=== PATIENT | female | born 1965 | race Hispanic/Latino ===

== ENCOUNTER 2016-12-27 20:40 | Emergency (ER) | payer OTHER ==
[2016-12-27 21:02] VITALS: TEMP 98.3
--- NOTE | 2016-12-27 21:41 | ED PDOC ---
HPI: Chest Pain Time Seen by Provider: 12/27/16 21:04 Chief Complaint (Nursing): Palpitations History Per: Patient History/Exam Limitations: no limitations Onset/Duration Of Symptoms: Mins Current Symptoms Are (Timing): Gone Now Severity: None Modifying Factors: None Exacerbating Factors: None Alleviating Factors: None Additional Complaint(s): Hx of HTN, paroxysmal afib p/w palpitations x 15 min, states she was eating dinner and drinking wine and started feeling irregular heart beats and occasional skipped beats, states her heart was beating very fast and hard but denies CP. Denies SOB. States that symptoms abated on their own. Currently has no symptoms. Admits to not taking losartan x 5 weeks. Had holter monitoring in July that produced one capture of "irregular heart beat". Denies cough, fevers, chills. Admits to RLE pain yesterday that has since completely resolved. Past Medical History Reviewed: Historical Data, Nursing Documentation, Vital Signs Vital Signs: Last Vital Signs Temp 98.3 F 12/27/16 20:58 Pulse 94 H 12/27/16 20:58 Resp 17 12/27/16 20:58 BP 141/92 H 12/27/16 20:58 Pulse Ox 98 12/27/16 21:42 - Family History Family History: States: Unknown Family Hx - Allergies Allergies/Adverse Reactions: Allergies Allergy/AdvReac Type Severity Reaction Status Date / Time No Known Allergies Allergy Verified 12/27/16 21:02 SANJAY Risk Score for UA/NSTEMI - SANJAY Risk Score Age > 64: NO 3 or more CAD Risk Factors: NO Known CAD (Stenosis greater than 50%): NO Aspirin use in past 7 days: NO Severe Angina: NO EKG ST changes greater than 0.5mm: NO Positive Cardiac Marker: NO SANJAY Score: 0 Risk %: 5% Wells Criteria for PE - Wells Criteria for Pulmonary Embolism Clinical Signs and Symptoms of DVT: No P.E is #1 Diagnosis, or Equally Likely: No Heart Rate >100: No Immobilization at least 3 days;Surgery previous 4 weeks: No Previous, objectively diagnosed PE or DVT: No Hemoptysis: No Malignancy w/treatment within 6 months, or palliative: No Total Score: 0 Review of Systems ROS Statement: Except As Marked, All Systems Reviewed And Found Negative Cardiovascular: Positive for: Palpitations Musculoskeletal: Positive for: Leg Pain Physical Exam - Reviewed Nursing Documentation Reviewed: Yes Vital Signs Reviewed: Yes - Physical Exam Appears: Positive for: Well, Non-toxic, No Acute Distress Head Exam: Positive for: ATRAUMATIC, NORMAL INSPECTION, NORMOCEPHALIC Skin: Positive for: Normal Color, Warm, DRY Eye Exam: Positive for: EOMI, Normal appearance, PERRL ENT: Positive for: Normal ENT Inspection Neck: Positive for: Normal, Painless ROM Cardiovascular/Chest: Positive for: Regular Rate, Rhythm Respiratory: Positive for: CNT, Normal Breath Sounds Gastrointestinal/Abdominal: Positive for: Normal Exam, Bowel Sounds, Soft Back: Positive for: Normal Inspection Extremity: Positive for: Normal ROM. Negative for: Tenderness, Pedal Edema, Calf Tenderness, Swelling Neurologic/Psych: Positive for: Alert, Oriented - Laboratory Results Result Diagrams: 12/27/16 21:48 12/27/16 21:48 - ECG ECG Rhythm: Positive for: Normal QRS, Normal ST Segment, Sinus Rhythm O2 Sat by Pulse Oximetry: 98 Pulse Ox Interpretation: Normal Medical Decision Making Medical Decision Making: A/P: Hx of p-Afib, HTN p/w palpitations, now resolved -possible period of afib that has since resolved, now in NSR with normal EKG -will send labs to r/o cardiac damage, also dimer to r/o PE. 1125PM: Pt. w/ neg workup, no afib or abnl rhythm while in ED, pt. will call her doctors tomorrow for appointment. return precautions given- CP/sob/ palpitations or other concerning symptoms. Disposition - Clinical Impression Clinical Impression: Palpitations - Disposition Disposition: Routine/Home Disposition Time: 23:44 Condition: STABLE
[2016-12-27 21:52] LABS: BASO # 0.1 K/uL (0.0-0.2); EOS % 0.7 % (0.0-4.0); HEMATOCRIT 41.1 % (34.0-47.0); LYMPH # 1.3 K/uL (1.0-4.3); LYMPH % 21.1 % (20.0-40.0); MEAN CELL VOLUME 90.4 fl (81.0-99.0); MEAN CORPUSCULAR HEMOGLOBIN 29.4 pg (27.0-31.0); MEAN CORPUSCULAR HGB CONC 32.5 g/dL (33.0-37.0); MEAN PLATELET VOLUME 8.5 fl (7.2-11.7); MONO # 0.5 K/uL (0.0-0.8); MONO % 7.9 % (0.0-10.0); NEUT # 4.4 K/uL (1.8-7.0); NEUT % 69.3 % (50.0-75.0); RED CELL DISTRIBUTION WIDTH 13.9 % (11.5-14.5); WHITE BLOOD COUNT 6.4 K/uL (4.8-10.8)
[2016-12-27 22:03] LABS: BLOOD UREA NITROGEN 14 mg/dl (7-17); CALCIUM 9.3 mg/dL (8.4-10.2); CARBON DIOXIDE 28 mmol/L (22-30); CHLORIDE 103 mmol/L (98-107); GFR AFRICAN-AMERICAN > 60; GLUCOSE,RANDOM 115 mg/dL (65-105); POTASSIUM 3.6 MMOL/L (3.6-5.0); SODIUM 141 mmol/l (132-148)
[2016-12-28 00:02] VITALS: BP 150/75; PULSE 76; RESP 16; O2SAT 99
--- NOTE | 2016-12-28 12:01 | RAD ---
HISTORY: palpitations COMPARISON: 06/17/2009 TECHNIQUE: Chest PA and lateral FINDINGS: LUNGS: No active pulmonary disease. PLEURA: No significant pleural effusion identified. No pneumothorax apparent. CARDIOVASCULAR: Normal. OSSEOUS STRUCTURES: No significant abnormalities. VISUALIZED UPPER ABDOMEN: Normal. OTHER FINDINGS: None. IMPRESSION: No active disease. No significant interval change compared to the prior examination(s).
--- NOTE | 2016-12-28 16:43 | CARD ---
APPROVED REPORT EKG Measurement Heart [id number] <Conclusion> Normal sinus rhythm Nonspecific ST abnormality Abnormal ECG
== END 2016-12-28 00:02 | disposition home or self-care (01) ==
LOC: H.ER 20:40
DX: R00.2 Palpitations (principal); I10 Essential (primary) hypertension; I48.91 Unspecified atrial fibrillation

== ENCOUNTER 2017-01-31 22:37 | Emergency (ER) | payer OTHER ==
[2017-01-31 22:56] VITALS: RESP 16; TEMP 98; O2SAT 100
--- NOTE | 2017-02-01 00:09 | ED PDOC ---
HPI: Hypertension/Hypotension Time Seen by Provider: 01/31/17 22:57 Chief Complaint (Nursing): Palpitations Chief Complaint (Provider): Palpitations History Per: Patient History/Exam Limitations: no limitations Onset/Duration Of Symptoms: Mins (x30 min episode) Current Symptoms Are (Timing): Still Present Associated Symptoms: denies: Chest Pain, Dyspnea Quality Of Symptoms: Rapid Heart Rate, Irregular Heart Rate Additional Complaint(s): 51 year old female presents to ED with complaints of palpitations x30 minutes and has a past medical history of AFIB and HTN. Patient describes episode as irregular, rapid heart beat, which prompted her to present to ED. Upon arrival, patient confirms she is asymptomatic. (-) chest pain, nausea, vomiting, or SOB. As witnessed by monitor, patient converted to NSR. States that she had a similar episode x1 month ago and was seen here for that episode as well. Notes that after that episode, she followed up with her gas engine performance engineer, had an outpatient Holter monitor study done and is awaiting the results. PCP: Dr. Lanier Past Medical History Reviewed: Historical Data, Nursing Documentation, Vital Signs Vital Signs: Last Vital Signs Temp 98.0 F 01/31/17 22:53 Pulse 88 01/31/17 22:53 Resp 16 01/31/17 22:53 BP 162/93 H 01/31/17 22:53 Pulse Ox 100 01/31/17 22:53 - Medical History PMH: Asthma, Atrial Fibrillation, HTN Denies: No Chronic Diseases, Chronic Kidney Disease - Family History Family History: States: Unknown Family Hx - Social History Current smoker - smoking cessation education provided: No Ex-Smoker (has not smoked in the last 12 months): No Alcohol: Occasional Drugs: Denies - Allergies Allergies/Adverse Reactions: Allergies Allergy/AdvReac Type Severity Reaction Status Date / Time No Known Allergies Allergy Verified 12/27/16 21:02 Review of Systems ROS Statement: Except As Marked, All Systems Reviewed And Found Negative Cardiovascular: Positive for: Palpitations. Negative for: Chest Pain Respiratory: Negative for: Shortness of Breath Gastrointestinal: Negative for: Nausea, Vomiting Physical Exam - Reviewed Nursing Documentation Reviewed: Yes Vital Signs Reviewed: Yes - Physical Exam Appears: Positive for: Non-toxic, No Acute Distress Skin: Positive for: Normal Color, Warm, Dry Eye Exam: Positive for: Normal appearance ENT: Positive for: Normal ENT Inspection Neck: Positive for: Normal, Painless ROM, Supple Cardiovascular/Chest: Positive for: Regular Rate, Rhythm. Negative for: Murmur Respiratory: Positive for: Normal Breath Sounds. Negative for: Respiratory Distress Gastrointestinal/Abdominal: Positive for: Normal Exam, Soft. Negative for: Tenderness Back: Positive for: Normal Inspection Extremity: Positive for: Normal ROM. Negative for: Deformity Neurologic/Psych: Positive for: Alert, Oriented. Negative for: Motor/Sensory Deficits - ECG ECG: Positive for: Interpreted By Me, Viewed By Me ECG Rhythm: Positive for: Atrial Flutter, Right Bundle Branch Block Rate: 135 (at 2247) O2 Sat by Pulse Oximetry: 100 (RA) Pulse Ox Interpretation: Normal Medical Decision Making Medical Decision Makin Initial impression: episode of AFIB and known history of AFIB (now NSR) Initial plan: * EKG * Labs * PTT/PT Patient explained to patient that extensive labs and imaging are not needed due to asymptomatic state. Patient has been placed on film cleaner. If patient remains asymptomatic, she will be discharged to follow up with her gas engine performance engineer. 0042 Patient has remained asymptomatic and at NSR for the duration of ED visit. Patient is stable for discharge home and will follow up with gas engine performance engineer. Dx: paroxysmal atrial fibrillation Scribe Attestation: Documented by Baylee Gallardo acting as a scribe for Kilo Alvares MD. Scribe Attestation: All medical record entries made by the Scribe were at my direction and personally dictated by me. I have reviewed the chart and agree that the record accurately reflects my personal performance of the history, physical exam, medical decision making, and the department course for this patient. I have also personally directed, reviewed, and agree with the discharge instructions and disposition. Disposition - Clinical Impression Clinical Impression: Paroxysmal atrial fibrillation - Disposition Referrals: Severino Adair MD [Staff Provider] - Disposition: Routine/Home Disposition Time: 00:42 Condition: STABLE Instructions: Atrial Fibrillation (ED)
[2017-02-01 01:07] VITALS: BP 152/78
--- NOTE | 2017-02-01 08:32 | CARD ---
APPROVED REPORT EKG Measurement Heart [id number] <Conclusion> Atrial flutter with 2:1 AV conduction Right bundle branch block T wave abnormality, consider inferior ischemia Abnormal ECG
[2017-02-03 20:19] VITALS: PULSE 135
== END 2017-02-01 01:10 | disposition home or self-care (01) ==
LOC: H.ER 22:37
DX: I48.0 Paroxysmal atrial fibrillation (principal); I10 Essential (primary) hypertension; J45.909 Unspecified asthma, uncomplicated; Z87.891 Personal history of nicotine dependence